=== PATIENT | male | born 1970 | race Caucasian/White ===

== ENCOUNTER 2022-07-28 09:46 | Emergency (ER) | payer OTHER ==
[~2022-07-28] VITALS: Ht 180.3 cm; Wt 78.6 kg
[2022-07-28] MEDS ORDERED: HYDROCODONE/APAP 5MG-325MG TAB PO ONE (10:30)
[2022-07-28] MEDS ORDERED: CEFDINIR300 MG PO (10:30)
[2022-07-28] MEDS ORDERED: FAMCICLOVIR250 MG PO (10:30)
[2022-07-28] MEDS ORDERED: NEURONTIN100 MG PO (10:30)
[2022-07-28] MEDS ORDERED: BACTRIM DS TAB1 EACH PO (10:30)
[2022-07-28] MEDS ORDERED: HYDROCODONE/APAP 5MG-325MG TAB ONE (10:44)
== END 2022-07-28 10:37 | disposition home or self-care (01) ==
LOC: FSED 09:50
DX: L03.211 Cellulitis of face (principal); F17.210 Nicotine dependence, cigarettes, uncomplicated
CPT/HCPCS: 10060; 99283